=== PATIENT | male | born 1980 | race Asian ===

== ENCOUNTER 2017-08-25 22:54 | Emergency (ER) | payer SELFPAY ==
[~2017-08-25] VITALS: Ht 175.3 cm; Wt 83.9 kg
[2017-08-25 23:03] VITALS: Ht 175.3 cm; Wt 83.9 kg
[2017-08-26 01:22] VITALS: BP 121/72
== END 2017-08-26 01:22 | disposition home or self-care (01) ==
LOC: ED 22:54
DX: S01.112A Laceration without foreign body of left eyelid and periocular area, initial encounter (principal); W18.30XA Fall on same level, unspecified, initial encounter; Y93.89 Activity, other specified; Y92.89 Other specified places as the place of occurrence of the external cause; Y99.8 Other external cause status
CPT/HCPCS: 90715; J2001